=== PATIENT | male | born 1985 | race Caucasian/White ===

== ENCOUNTER 2020-11-13 13:23 | Emergency (ER) | payer MEDICAID, SELFPAY ==
[2020-11-13 13:28] VITALS: BP 138/88; PULSE 68; RESP 18; TEMP 36.8
--- NOTE | 2020-11-13 13:45 | DI.RAD_ITS ---
EXAM: XR HAND LT COMPLETE CLINICAL HISTORY: dog bite, 4th and 5th digit dog bite. TECHNIQUE: 2D digital imaging was performed. COMPARISON: No exams were available for comparison FINDINGS: BONES: No acute fracture is present. No bony destructive lesion is seen. JOINTS: No dislocation present. SOFT TISSUE: There is soft tissue swelling around the 5th metacarpal head. Small amount of air seen . There is no foreign body. IMPRESSION: Soft tissue swelling. No fracture. DATA REPOSITORY: RADIATION DOSE DELIVERED:
--- NOTE | 2020-11-13 13:56 | NUR.NOTE ---
Rabies Vaccine orders faxed to [facility] as Infusion room closed on weekend. Nursing Note:
--- NOTE | 2020-11-13 13:57 | ED.GENADUL_ITS ---
Discharge Plan Disposition Patient Disposition: HOME Condition: Good Discharge Details Clinical Impression: Dog bite of hand Primary Care Provider: None,None ED Provider: Briana Moore Home Meds and New Rx's Prescriptions: New amoxicillin-pot clavulanate [Augmentin] 875-125 mg tablet 1 tab PO BID Qty: 20 RF: 0 No Action Cbd Gummies PRN PRNRF: 0 Discharge Instructions Instructions: Animal Bite (ED) Additional Instructions: You will need to follow-up with orthopedics on Sunday, they should contact you, if they do not, you should call to set up follow-up appointment, the concern is that you may develop a infected joint Take your antibiotic as prescribed, take your next respiratory go to bed this evening Ibuprofen and Tylenol for pain control You should keep the joint immobilized in the splint as much as possible as moving it will put you at increased risk for infection Elevate Please return earlier should you develop fever, redness, or with any new or worsening pain You will need to return for rabies vaccines at days 3, 7, and 14 You will go to the infusion clinic Medical Decision Making Patient with tenderness atMCP, soft tissue swelling on x-ray, no evidence of fracture or retained foreign body per my x-ray reviewed and radiology interpretation, tetanus up-to-date Rabies vaccine initiated, day 0, will need additional dose of the rabies vaccine a day 3, 7, 14 Received immunoglobulin, approximately 4 cc were injected around the bite site Wound irrigated copiously oxygen 98%RA No evidence of tendon injury, flexion examination intact pain No evidence of septic joint, at time of my evaluation Placed in aluminum foam, 2 inch Gogo by me Will need orthopedic follow-up on Sunday, concern for MCP involvement Placed on Augmentin, first dose in the ER, prescription for home Ibuprofen and Tylenol for pain control Return precautions discussed Discharge home patient with suicidal Wound will not be sutured as risk of infection outweighs benefit of approximation Differential Diagnosis Differential Diagnosis: Septic joint, laceration, abrasion, tendon injury Medical Records Medical records reviewed: Yes I reviewed the patient's medical records. HPI This 35-year-old male presents status post dog bite. The dog bite occurred approximately an hour and half prior to arrival. There is an unknown dog who bit down on his hands and as the patient pulled his hand away from the dog, he felt a popping sensation. He has pain in the area but he describes a sharp and positional. Denies any sensation changes. He is otherwise healthy. His tetanus is up-to-date. The dog has an unknown rabies status. Denies immunosuppression or any additional health issues. General Date/Time Provider Initiated Documentation: 11/13/20 13:24 . Related Data Home Medications Medication Instructions Recorded Confirmed Cbd Gummies PRN PRN 11/13/20 amoxicillin-pot clavulanate 1 tab PO BID #20 tab 11/13/20 [Augmentin] Previous Rx's Medication Instructions Recorded amoxicillin-pot clavulanate 1 tab PO BID #20 tab 11/13/20 [Augmentin] Allergies Allergy/AdvReac Type Severity Reaction Status Date / Time No Known Allergies Allergy Unverified 11/13/20 13:31 General Stated Complaint: AnimalBite SANTOS: 4 Review of Systems Narrative: Review of systems negative [id number] from where indicated in HPI PFSH Medical History (Updated 11/13/20 @ 15:25 by FRANK Li) No active medical problems Surgical History (Updated 11/13/20 @ 13:31 by Rosario Cadena) Hx of appendectomy Social History Smoking/Tobacco Use Status: Never Smoking risk assessment performed?: Yes Alcohol Intake: current Substance use type: does not use Do you feel safe at home: Yes Do you feel safe in your relationship?: Yes Exam Extrem Hand/finger images: 1. Superficial 4 mm laceration 2. 6 mm laceration, into subcutaneous tissue, Knee pain with flexion, extension intact, flexion intact Neurovascularly intact Course Vital Signs Vital signs: Vital Signs Temperature 36.8 C 11/13/20 13:28 Pulse 68 11/13/20 13:28 Respiratory Rate 18 11/13/20 13:28 Blood Pressure 138/88 11/13/20 13:28 Temperature 36.8 C 11/13/20 13:28 Temperature Source Skin 11/13/20 13:28 Pulse 68 11/13/20 13:28 Respiratory Rate 18 11/13/20 13:28 Respiratory Effort Non-Labored 11/13/20 13:30 Blood Pressure 138/88 11/13/20 13:28 Blood Pressure Position Sitting 11/13/20 13:28 Pain Level 5 11/13/20 13:28
--- NOTE | 2020-11-13 14:21 | DI.VRAD_ITS ---
PROCEDURE INFORMATION: Exam: XR Left Hand Exam date and time: 11/13/2020 2:09 PM Age: 35 years old Clinical indication: Other: Dog bite, 4th and 5th digit dog bite TECHNIQUE: Imaging protocol: XR Left hand. Views: 3 or more views. COMPARISON: No relevant prior studies available. FINDINGS: Bones/joints: Normal. Soft tissues: Minimal soft tissue swelling at the 5th MCP joint. No radiopaque foreign body. IMPRESSION: No acute bony abnormality. Dictated and Authenticated by: Alexander Gonzalez MD. Ordering:BONG Warren MD
[2020-11-13] MEDS: Amoxicillin 875/Clav. 125 TAB PO (14:43)
[2020-11-13] MEDS: Rabies Immune Globulin 300 UNIT/ML VIAL 1632.94 UNIT IM (14:45)
[2020-11-13] MEDS: Ketorolac 15 MG/ML VIAL IM (14:52)
[2020-11-13] MEDS: Acetaminophen 500 MG TAB (14:52)
--- NOTE | 2020-11-13 17:38 | NUR.NOTE ---
Animal bite reported to [facility], , form faxed to [facility] [phone].Nursing Note:
== END 2020-11-13 15:37 | disposition home or self-care (01) ==
PROVIDERS: Emergency Provider Physician Assistant
DX: S61.452A Open bite of left hand, initial encounter (principal); W54.0XXA Bitten by dog, initial encounter
CPT/HCPCS: 90471; 96372; 99284; 73130; 90675; J1885